=== PATIENT | male | born 1945 | race Native Hawaiian/Other Pacific Islander ===

== ENCOUNTER 2017-09-21 11:53 | Outpatient (CLI) | payer OTHER ==
[2017-09-21 12:44] LABS: PLATELET COUNT 208 K/uL (142-355)
[2017-09-21 12:47] LABS: POTASSIUM 4.2 mmol/L (3.6-5.2)
== END 2017-09-21 22:50 | disposition home or self-care (01) ==
LOC: EDBD 11:53 → LABW 11:53
PROVIDERS: Internal Medicine
DX: I10 Essential (primary) hypertension (principal)
CPT/HCPCS: 36415; 80053; 80061; 81000; 85027

== ENCOUNTER 2019-02-25 12:10 | Outpatient (CLI) | payer OTHER ==
[2019-02-25 13:42] LABS: PLATELET COUNT 193 K/uL (142-355)
[2019-02-25 14:06] LABS: POTASSIUM 3.8 mmol/L (3.6-5.2)
== END 2019-02-25 22:26 | disposition home or self-care (01) ==
LOC: LAB 12:10
PROVIDERS: Physician Assistant
DX: I10 Essential (primary) hypertension (principal); K21.9 Gastro-esophageal reflux disease without esophagitis; E78.5 Hyperlipidemia, unspecified; R35.1 Nocturia
CPT/HCPCS: 80053; 80061; 82306; 84153; 84443; 85027

== ENCOUNTER 2019-03-14 11:11 | Outpatient (CLI) | payer OTHER | END 2019-03-14 19:26 | disposition home or self-care (01) | LOC: US 11:11 | DX: Z13.6 Encounter for screening for cardiovascular disorders (principal); Z84.89 Family history of other specified conditions ==

== ENCOUNTER 2020-05-07 10:23 | Outpatient (CLI) | payer OTHER ==
[2020-05-07 11:03] LABS: POTASSIUM 4.5 mmol/L (3.6-5.2)
[2020-05-07 11:11] LABS: PLATELET COUNT 164 K/uL (142-355)
== END 2020-05-07 19:41 | disposition home or self-care (01) ==
LOC: LABW 10:23
PROVIDERS: ATTEND Internal Medicine
DX: I10 Essential (primary) hypertension (principal)
CPT/HCPCS: 36415; 80053; 80061; 81000; 84439; 84443; 85027

== ENCOUNTER 2021-06-04 09:05 | Outpatient (CLI) | payer OTHER ==
[2021-06-04 09:42] LABS: PLATELET COUNT 182 K/uL (142-355)
[2021-06-04 10:03] LABS: POTASSIUM 4.1 mmol/L (3.6-5.2)
== END 2021-06-04 19:09 | disposition home or self-care (01) ==
LOC: LABW 09:05
PROVIDERS: ATTEND Internal Medicine
DX: I10 Essential (primary) hypertension (principal); E78.49 Other hyperlipidemia
CPT/HCPCS: 36415; 80053; 80061; 81000; 84439; 84443; 85027